=== PATIENT | male | born 2005 | race Caucasian/White ===

== ENCOUNTER 2024-09-09 15:58 | Outpatient (CLI) | payer BC, SELFPAY ==
--- NOTE | ~2024-09-09 | MR_ITS ---
MRI of the brain Clinical History: History of multiple concussions Technique: Axial and sagittal T1-weighted images were acquired. These were followed by axial T2-weigh ivanna, diffusion weighted, gradient, and FLAIR images. Findings: No abnormal signal seen in the brain parenchyma. No acute infarct, intracranial hemorrhage, or mass lesion. Ventricles and subarachnoid spaces are unremarkable. Orbits are unremarkable. Paranasal sinuses and m astoid air cells are clear. Major intracranial flow voids are intact. Sagittal midline structures are intact. IMPRESSION: Normal exam. Reviewed, dictated and finalized at location M. IMPRESSION: Normal exam.
== END 2024-09-09 15:59 | disposition home or self-care (01) ==
PROVIDERS: PCP Physician Assistant; Visit Provider Physician Assistant
DX: R40.20 Unspecified coma (principal); F07.81 Postconcussional syndrome; Z87.820 Personal history of traumatic brain injury; Z87.898 Personal history of other specified conditions
CPT/HCPCS: 70551